=== PATIENT | female | born 1935 | race Caucasian/White ===

== ENCOUNTER 2022-04-29 12:11 | Outpatient (CLI) | payer MEDICARE, BC ==
[~2022-04-29] VITALS: Ht 160 cm; Wt 49.9 kg
[2022-04-29 12:54] LABS: EOSINOPHILS # (AUTO) 0.1 X10'3 (0-0.9); EOSINOPHILS % (AUTO) 1.2 % (0-6); LYMPHOCYTES # (AUTO) 0.9 X10'3 (1.1-4.8); LYMPHOCYTES % (AUTO) 13.9 % (21-51); MONOCYTES # (AUTO) 0.5 X10'3 (0-0.9); NEUTROPHILS # (AUTO) 4.7 X10'3 (1.8-7.7); RED BLOOD COUNT 4.64 X10'6 (4.20-5.60); RED CELL DISTRIBUTION WIDTH 14.5 % (11.5-14.5); WHITE BLOOD COUNT 6.2 X10'3 (4.5-11.0)
[2022-04-29 12:56] LABS: BASOPHILS % (AUTO) 0.6 % (0-1); HEMATOCRIT 41.8 % (35.0-45.0); HEMOGLOBIN 14.1 g/dl (12.0-16.0); MEAN CORPUSCULAR HEMOGLOBIN 30.4 PG (27.0-31.0); MEAN CORPUSCULAR HGB CONC 33.7 g/dL (33.0-36.5); MEAN CORPUSCULAR VOLUME 90.1 FL (78-98); MONOCYTES % (AUTO) 8.6 % (2-12); NEUTROPHILS % (AUTO) 75.7 % (42-75); PLATELET COUNT 89 X10'3 (140-440)
[2022-04-29 13:09] LABS: APTT 31 SECONDS (22-32)
[2022-04-29 13:11] LABS: ALANINE AMINOTRANSFERASE 26 U/L (12-78); ALBUMIN 3.5 G/DL (3.4-5.0); ALBUMIN/GLOBULIN RATIO 1.3 (1.1-1.5); ALKALINE PHOSPHATASE 72 IU/L (46-116); ANION GAP 4 (8-16); ASPARTATE AMINO TRANSFERASE 28 U/L (10-37); BILIRUBIN,TOTAL 0.9 MG/DL (0.1-1.0); BLOOD UREA NITROGEN 18 MG/DL (7-18); BUN/CREATININE RATIO 24.7 (6.6-38.0); CALCIUM 8.4 MG/DL (8.5-10.1); CHLORIDE 108 MMOL/L (99-107); CREATININE 0.73 MG/DL (0.40-0.90); GLUCOSE 104 MG/DL (70-104); POTASSIUM 4.1 MMOL/L (3.5-5.1); SODIUM 142 MMOL/L (135-145); TOTAL CARBON DIOXIDE 30.4 MMOL/L (24-32); TOTAL PROTEIN 6.2 G/DL (6.4-8.2); eGFR 75 ML/MIN
[2022-04-29] MEDS ORDERED: IODIXANOL 320 MG/ML INFUS..BTL 50ML IV ONE (13:22)
[2022-04-29] MEDS ORDERED: albuterol 2.5 MG/3 ML nebule NEB PRN (14:15)
[2022-05-16] MEDS ORDERED: APIX2.5T PO (13:56)
[2022-05-16] MEDS ORDERED: CLOP75TA15 PO (13:56)
[2022-05-16] MEDS ORDERED: ATOR10TA PO (13:56)
== END 2022-04-29 23:59 | disposition home or self-care (01) ==
LOC: 64 CT 12:11
PROVIDERS: ATTEND Internal Medicine Cardiovascular Disease
DX: J47.9 Bronchiectasis, uncomplicated (principal); I51.7 Cardiomegaly; I70.0 Atherosclerosis of aorta; J98.4 Other disorders of lung; R94.2 Abnormal results of pulmonary function studies; J98.11 Atelectasis; I35.0 Nonrheumatic aortic (valve) stenosis; I65.29 Occlusion and stenosis of unspecified carotid artery; R60.9 Edema, unspecified; Z98.82 Breast implant status
CPT/HCPCS: 36415; 71046; 71275; 74174; 80053; 85025; 85610; 85730; 94010; 94727; 94729; J3490; Q9967

== ENCOUNTER 2022-05-19 07:46 | Inpatient (IN) | payer MEDICARE, BC ==
[2022-05-16 14:11] LABS: EOSINOPHILS # (AUTO) 0.1 X10'3 (0-0.9); LYMPHOCYTES % (AUTO) 13.7 % (21-51); MEAN CORPUSCULAR HGB CONC 32.6 g/dL (33.0-36.5)
[2022-05-16 14:13] LABS: BASOPHILS % (AUTO) 0.3 % (0-1); EOSINOPHILS % (AUTO) 0.9 % (0-6); LYMPHOCYTES # (AUTO) 0.8 X10'3 (1.1-4.8); MEAN CORPUSCULAR HEMOGLOBIN 30.2 PG (27.0-31.0); MEAN CORPUSCULAR VOLUME 92.5 FL (78-98); MEAN PLATELET VOLUME 10.8 FL (7.4-10.4); MONOCYTES # (AUTO) 0.7 X10'3 (0-0.9); MONOCYTES % (AUTO) 11.5 % (2-12); NEUTROPHILS # (AUTO) 4.3 X10'3 (1.8-7.7); NEUTROPHILS % (AUTO) 73.6 % (42-75); PRE OP HEMATOCRIT 44.9 % (35.0-45.0); PRE OP HEMOGLOBIN 14.6 g/dL (12.0-16.0); RED BLOOD COUNT 4.85 X10'6 (4.20-5.60); RED CELL DISTRIBUTION WIDTH 14.7 % (11.5-14.5)
[2022-05-16 14:20] LABS: PRE OP PLATELET COUNT 86 X10'3 (140-440)
[2022-05-16 14:33] LABS: CLARITY,URINE SLIGHTLY CLOUDY (Clear); COLOR,URINE YELLOW (Yellow); GLUCOSE, URINE NEGATIVE (Neg); KETONES,URINE TRACE mg/dl (Neg); LEUKOCYTE ESTERASE ,URINE NEGATIVE (Neg); NITRITES, URINE NEGATIVE (Neg); OCCULT BLOOD,URINE SMALL (Neg); PH,URINE 6.5 (4.8-8.0); PROTEIN,URINE NEGATIVE (Neg)
[2022-05-16 14:41] LABS: UA COLLECTION TYPE CLN CATCH MIDSTREAM
[2022-05-16 14:42] LABS: HYALINE CASTS 0-3 /LPF (NEGATIVE); MUCUS STRANDS MANY /LPF (Neg); SQUAMOUS EPITHELIAL CELL,UR FEW /LPF (FEW)
[2022-05-16 14:44] LABS: BACTERIA,URINE 1+ /HPF (Neg); WBC,URINE 0-4 /HPF (0-4)
[2022-05-16 14:45] LABS: ALBUMIN 3.7 G/DL (3.4-5.0); ALBUMIN/GLOBULIN RATIO 1.2 (1.1-1.5); ALKALINE PHOSPHATASE 64 IU/L (46-116); BLOOD UREA NITROGEN 17 MG/DL (7-18); CALCIUM 8.8 MG/DL (8.5-10.1); CHLORIDE 107 MMOL/L (99-107); CREATININE 0.68 MG/DL (0.40-0.90); PRE OP ALT 20 U/L (30-65); PRE OP ANION GAP 8 (8-16); PRE OP AST 21 U/L (10-37); PRE OP BILIRUB, TOTAL 1.1 MG/DL (0.0-1.0); PRE OP GLUCOSE 89 MG/DL (70-104); PRE OP POTASSIUM 4.1 MMOL/L (3.4-5.1); PRE OP SODIUM 144 MMOL/L (135-145); TOTAL CARBON DIOXIDE 28.9 MMOL/L (24-32); TOTAL PROTEIN 6.7 G/DL (6.4-8.2); eGFR 82 ML/MIN
[2022-05-16 15:04] LABS: PRE OP INR 1.1 INR; PRE OP PROTIME 11.7 SECONDS (9.0-12.0)
[~2022-05-19] VITALS: Ht 160 cm; Wt 49.2 kg
[2022-05-19] VITALS (22 sets, daily range): BP systolic 98–143; BP diastolic 56–76
[2022-05-19] MEDS: nitroPRUSSIDE (NIPRIDE) (200MCG/ML) 100ML Drip IV SCH (05:30)
[~2022-05-19 07:46] MED LIST: APIX2.5T PO; ATOR10TA PO; CLOP75TA15 PO; aspirin 325mg tablet PO ONE; ceFAZolin inj. 2,000 MG in dextrose 5%-water 100 ML IV ONE; famotidine 20mg tablet PO ONE; ondansetron/PF 4mg/2ml inj IV PRN; phenylephrine inj 50 MG in normal saline 250ml IV solN IV SCH; protamine sulfate 10mg/ml inj. ONE; ringers solution, lacted 1,000 ML IV SCH; vancomycin/NS 1 GM in NS 250 ML IV ONE
[2022-05-19] MEDS ORDERED: proCHLORperazine 10 MG/2 ml inj IV PRN ×2 (10:10→13:35)
[2022-05-19] MEDS ORDERED: morphine 4 MG/ML inj SYRINge IV PRN (10:10)
[2022-05-19] MEDS ORDERED: ringers solution, lacted 1,000 ML IV SCH (10:10)
[2022-05-19] MEDS ORDERED: meperidine/PF 25mg/ml syringe IV PRN ×3 (10:10)
[2022-05-19] MEDS ORDERED: morphine 2 MG/ML inj. syringe IV PRN (10:10)
[2022-05-19] MEDS ORDERED: ondansetron/PF 4mg/2ml inj IV PRN ×2 (10:10→13:35)
[2022-05-19] MEDS ORDERED: iohexol 350MG/ML 100ml bottle IV ONE ×2 (11:15→11:16)
[2022-05-19] MEDS ORDERED: heparin 1,000 UNITS/NS 500ml 1,500 ML ONE (11:16)
[2022-05-19] MEDS ORDERED: sevoflurane 250ml liquid IH ONE (11:20)
[2022-05-19] MEDS ORDERED: neostigmine methylsulfate 1 MG/ML 10ml vial ONE (11:20)
[2022-05-19] MEDS ORDERED: midazolam 1 mg/ML 2ml injection ONE ×3 (11:29→14:33)
[2022-05-19] MEDS ORDERED: propofol inj 20 ML IV ONE (11:29)
[2022-05-19] MEDS ORDERED: LIDOcaine 2% (20mg/ml) 5ml vial ONE (11:29)
[2022-05-19] MEDS ORDERED: etomidate 2mg/ml inj. ONE (12:42)
[2022-05-19] MEDS ORDERED: phenylephrine 10mg/ml inj. ONE (12:42)
[2022-05-19] MEDS ORDERED: rocuronium 10mg/ml inj IV ONE (12:42)
[2022-05-19] MEDS ORDERED: ondansetron/PF 4mg/2ml inj ONE (12:43)
[2022-05-19] MEDS ORDERED: labetalol 20mg/4ml (5mg/ml) syringe IV PRN (13:35)
[2022-05-19] MEDS ORDERED: diphenhydrAMINE 25mg capsule PO PRN (13:35)
[2022-05-19] MEDS ORDERED: pantoprazole 40mg Tablet.DR PO PRN (13:35)
[2022-05-19] MEDS ORDERED: docusate sod 100mg capsule PO PRN (13:35)
[2022-05-19] MEDS ORDERED: acetaminophen 325mg tablet PO PRN (13:35)
[2022-05-19] MEDS ORDERED: ALPRAZolam 0.25mg tablet PO PRN (13:35)
--- NOTE | 2022-05-19 13:38 | NUR ---
Received from OR via SURGICAL BED , accompanied by Anesthesiologist MARY and report given by Anesthesiolgist. PATIENT ARRIVED WITH 10L MASK WITH BLOOD SPLATTERED ALL OVER INSIDE OF MASK. HOB SLIGHTLY ELEVATED PER MD HERNANDEZ. O2 SATURATIONS DECREASING BUT SUCTIONED AND JC RED BLOOD PRESENT IN SUCTION TUBING PATIENT SLOWLY BECOMING HYPERTENSIVE AND LABETALOL ADMINISTERED EMERGENTLY PER MARY ORDERS MEDICATION OVERRIDDEN FOR EMERGENCY. MD HERNANDEZ CALLED BACK TO ROOM AND WE BEGAN TO VENTILATE AND SUCTION BLOOD FROM PATIENT. MD HERNANDEZ ORDERED 2 UNITS OF FFP. 20G PIV IN LEFT PRESENT AND PIV IN RIGHT IS NOT FLOWING. NEW PIV EMERGENTLY PLACED IN LEFT AND RIGHT UES AND PLATLETS. MD ASSESSING FOR INTUBATION. O2 SATURATIONS SLOWLY INCREASING. OVER 3-5 MINUTES PATIENT DROPPING SATURATIONS AND WITH INCREASING WORK OF BREATHING.MD HENDERSON AT BEDSIDE AT THIS TIME. MD LARA AND MARY ATTEMPTING ANOTHER INTUBATION OF PATIENT. A TOTAL OF 6MG OF MIDAZOLAM OVERRIDDEN AND ADMINISTERED OVER FOLLOWING 2-4 MINUTES. TAKEN OUT EMERGENTLY. PATIENT AIRWAY EXTABLISHED AND TAKEN TO THE ICU. Addendum: 05/19/22 at 1523 by Narciso Willis RN, RN Amended: Links added.
[2022-05-19] MEDS ORDERED: racepinephrine 11.25mg/0.5ml nebule ONE ×2 (14:14→14:58)
[2022-05-19] MEDS ORDERED: labetalol 20mg/4ml (5mg/ml) syringe IV ONE (14:15)
[2022-05-19] MEDS ORDERED: DESMOPRESSIN IV ONE (14:15)
[2022-05-19] MEDS ORDERED: NORMAL SALINE IV ONE (14:15)
--- NOTE | 2022-05-19 14:17 | NUR ---
labetolol ordered by dr flanagan pt extremely unstable and it was needed immediately so override was used.
[2022-05-19] MEDS ORDERED: fentaNYL/PF 50MCG/1 ML 2ML syringe ONE (14:50)
[2022-05-19] MEDS ORDERED: midazolam 100mg in NS 100ml 100 ML IV PRN ×2 (14:55→15:32)
[2022-05-19] MEDS ORDERED: racepinephrine 11.25mg/0.5ml nebule NEB PRN (14:55)
[2022-05-19] MEDS ORDERED: midazolam 1 mg/ML 2ml injection IV ONE (14:55)
[2022-05-19] MEDS ORDERED: FENTANYL-0.9 % NACL/PF 100 ML IV PRN ×2 (14:55→15:31)
[2022-05-19] MEDS ORDERED: fentaNYL/PF 50MCG/1 ML 2ML syringe IV PRN (14:55)
--- NOTE | 2022-05-19 15:25 | NUR ---
[id number] VS VARIED FROM 80-90S SYSTOLICALLY TO 140-160S . INTUBATION, PERIPHERAL IVS X2 BEING PLACE. PATIENT THRASHING AND TURNING IN BED. PATIENT EVENTUALLY TAKEN TO THE ICU AFTER COMPLETION OF INTUBATION. PATIENT IN STABLE CONDITION. LIVESTOCK JUDGING COACH RN'S GAVE REPORT TO THE ICU. Addendum: 05/19/22 at 1532 by Narciso Montes - ROSSANA RN Amended: Links added.
[2022-05-19 15:26] LABS: ABG BASE EXCESS -2.9 mmol/L (-2.0-2.0); ABG OXYGEN SATURATION 99.5 % (94-97); ABG PCO2 (T) 38.7 mmHg (32.0-45.0); ABG PO2 (T) 367.8 mmHg (75.0-100.0); FCOHb 0.3 % (0.0-3.9); FMetHb 0.5 % (0.0-1.5); FO2Hb 98.7 % (94-97); PEEP 5 cm H2O; RESPIRATORY RATE 17 b/min; TIDAL VOLUME 450 mL; TOTAL HEMOGLOBIN 12.2 G/dl (12.0-16.0)
--- NOTE | 2022-05-19 15:28 | NUR ---
CARE TURNED OVER TO [employer] MANAGER WHO TOOK PATIENT TO THE ICU WHERE THEY HELPED SET PATIENT UP AND GAVE REPORT. Addendum: 05/19/22 at 1532 by Narciso iWllis RN, RN Amended: Links added.
[2022-05-19 15:38] LABS: BASOPHILS % (AUTO) 0.1 % (0-1); EOSINOPHILS % (AUTO) 0.3 % (0-6); HEMATOCRIT 34.2 % (35.0-45.0); HEMOGLOBIN 11.4 g/dl (12.0-16.0); LYMPHOCYTES # (AUTO) 0.7 X10'3 (1.1-4.8); LYMPHOCYTES % (AUTO) 5.8 % (21-51); MEAN CORPUSCULAR HGB CONC 33.2 g/dL (33.0-36.5); MEAN CORPUSCULAR VOLUME 90.3 FL (78-98); MEAN PLATELET VOLUME 9.9 FL (7.4-10.4); MONOCYTES # (AUTO) 0.4 X10'3 (0-0.9); MONOCYTES % (AUTO) 3.7 % (2-12); NEUTROPHILS # (AUTO) 10.4 X10'3 (1.8-7.7); NEUTROPHILS % (AUTO) 90.1 % (42-75); PLATELET COUNT 146 X10'3 (140-440); RED BLOOD COUNT 3.79 X10'6 (4.20-5.60); RED CELL DISTRIBUTION WIDTH 14.5 % (11.5-14.5); WHITE BLOOD COUNT 11.6 X10'3 (4.5-11.0)
[2022-05-19] MEDS: normal saline 1000ml 1,000 ML IV SCH ×2 (15:49→23:35)
[2022-05-19 15:51] LABS: ALANINE AMINOTRANSFERASE 36 U/L (12-78); ALBUMIN 2.9 G/DL (3.4-5.0); ALBUMIN/GLOBULIN RATIO 1.2 (1.1-1.5); ALKALINE PHOSPHATASE 53 IU/L (46-116); ANION GAP 9 (8-16); ASPARTATE AMINO TRANSFERASE 44 U/L (10-37); BILIRUBIN,TOTAL 1.8 MG/DL (0.1-1.0); BLOOD UREA NITROGEN 21 MG/DL (7-18); BUN/CREATININE RATIO 35.6 (6.6-38.0); CALCIUM 7.9 MG/DL (8.5-10.1); CHLORIDE 107 MMOL/L (99-107); CREATININE 0.59 MG/DL (0.40-0.90); GLUCOSE 171 MG/DL (70-104); POTASSIUM 3.8 MMOL/L (3.5-5.1); SODIUM 140 MMOL/L (135-145); TOTAL CARBON DIOXIDE 24.4 MMOL/L (24-32); TOTAL PROTEIN 5.3 G/DL (6.4-8.2); eGFR > 90 ML/MIN
[2022-05-19] MEDS: sod chloride 0.9% 10ml flush syringe IV SCH (15:58)
[2022-05-19] MEDS: ceFAZolin 1GM/D5W- ADD-VANTAGE 50 ML IV SCH ×2 (16:04→23:41)
[2022-05-19 16:07] LABS: APTT 27 SECONDS (22-32)
--- NOTE | 2022-05-19 18:16 | NUR ---
Problems reprioritized. Patient report given, questions answered & plan of care reviewed with Sherry TRACY.
--- NOTE | 2022-05-19 18:17 | NUR ---
Patient in room CICU 2008. I have received report from Yair TRACY and had the opportunity to ask questions and assume patient care. Dr. Pisano at bedside. Per MD: plan is to wean to extubate in the AM with cork slabs sawyer, OG to be placed only if unable to extubate and need to give PO Plavix tomorrow. Contact cork slabs sawyer or blackjack supervisor Asaf Lee for emergent issues.
[2022-05-19] MEDS: vancomycin/NS 1 GM ADD-VANTAGE 250 ML IV SCH (20:12)
[2022-05-19] MEDS ORDERED: neomy sulf/bacitrac zn/polymixin b oint 14.2 gm tube TP SCH (21:00)
[2022-05-20] VITALS (30 sets, daily range): BP systolic 93–152; BP diastolic 41–65
[2022-05-20] MEDS: sod chloride 0.9% 10ml flush syringe IV SCH ×4 (00:19→23:45)
[2022-05-20 03:23] LABS: ABG BASE EXCESS -0.8 mmol/L (-2.0-2.0); ABG HCO3 20.7 mmol/L (22.0-26.0); ABG OXYGEN SATURATION 98.5 % (94-97); ABG PCO2 (T) 25.3 mmHg (32.0-45.0); ABG PO2 (T) 131.2 mmHg (75.0-100.0); FCOHb 0.3 % (0.0-3.9); FMetHb 0.3 % (0.0-1.5); FO2Hb 97.9 % (94-97); PEEP 5 cm H2O; RESPIRATORY RATE 16 b/min; TIDAL VOLUME 450 mL; TOTAL HEMOGLOBIN 11.6 G/dl (12.0-16.0)
[2022-05-20 03:29] LABS: BASOPHILS % (AUTO) 0.1 % (0-1); EOSINOPHILS % (AUTO) 0 % (0-6); HEMATOCRIT 31.4 % (35.0-45.0); HEMOGLOBIN 10.7 g/dl (12.0-16.0); LYMPHOCYTES # (AUTO) 0.2 X10'3 (1.1-4.8); MEAN CORPUSCULAR HEMOGLOBIN 30.3 PG (27.0-31.0); MEAN CORPUSCULAR HGB CONC 33.9 g/dL (33.0-36.5); MEAN CORPUSCULAR VOLUME 89.4 FL (78-98); MEAN PLATELET VOLUME 10.1 FL (7.4-10.4); MONOCYTES # (AUTO) 0.3 X10'3 (0-0.9); MONOCYTES % (AUTO) 4.3 % (2-12); NEUTROPHILS # (AUTO) 7.1 X10'3 (1.8-7.7); NEUTROPHILS % (AUTO) 92.6 % (42-75); PLATELET COUNT 90 X10'3 (140-440); RED BLOOD COUNT 3.51 X10'6 (4.20-5.60); RED CELL DISTRIBUTION WIDTH 14.2 % (11.5-14.5); WHITE BLOOD COUNT 7.7 X10'3 (4.5-11.0)
[2022-05-20 03:49] LABS: ALANINE AMINOTRANSFERASE 29 U/L (12-78); ALBUMIN 2.7 G/DL (3.4-5.0); ALBUMIN/GLOBULIN RATIO 1.1 (1.1-1.5); ALKALINE PHOSPHATASE 47 IU/L (46-116); ANION GAP 12 (8-16); ASPARTATE AMINO TRANSFERASE 34 U/L (10-37); BILIRUBIN,TOTAL 1.2 MG/DL (0.1-1.0); BLOOD UREA NITROGEN 22 MG/DL (7-18); BUN/CREATININE RATIO 36.1 (6.6-38.0); CALCIUM 7.5 MG/DL (8.5-10.1); CHLORIDE 107 MMOL/L (99-107); CREATININE 0.61 MG/DL (0.40-0.90); GLUCOSE 151 MG/DL (70-104); MAGNESIUM 1.7 MG/DL (1.5-2.4); POTASSIUM 3.6 MMOL/L (3.5-5.1); SODIUM 140 MMOL/L (135-145); TOTAL PROTEIN 5.1 G/DL (6.4-8.2); eGFR > 90 ML/MIN
[2022-05-20 04:10] LABS: PLATELET ESTIMATE DECREASED
[2022-05-20 04:13] LABS: BURR CELLS 1+; LARGE PLATELETS FEW; POIKILOCYTOSIS 2+
[2022-05-20] MEDS ORDERED: ringers solution, lactated 500ml IV solution IV ONE (04:20)
--- NOTE | 2022-05-20 04:20 | NUR ---
Dr. Pereira notified of patient's decreased urine output and hypotension. Orders received.
--- NOTE | 2022-05-20 06:19 | NUR ---
Problems reprioritized. Patient report given, questions answered & plan of care reviewed with Ami TRACY.
[2022-05-20] MEDS: ceFAZolin 1GM/D5W- ADD-VANTAGE 50 ML IV SCH (07:07)
[2022-05-20] MEDS: nitroPRUSSIDE (NIPRIDE) (200MCG/ML) 100ML Drip IV SCH (08:14)
[2022-05-20] MEDS: vancomycin/NS 1 GM ADD-VANTAGE 250 ML IV SCH (08:23)
[2022-05-20] MEDS: normal saline 1000ml 1,000 ML IV SCH ×2 (09:35→14:06)
--- NOTE | 2022-05-20 09:38 | NUR ---
Called Dr. Goss and told him the patient's current status and weaning parameters. Patient is good for extubation per
--- NOTE | 2022-05-20 09:42 | NUR ---
Called Dr. Pisano to verify that we are okay to extubate the patient. He stated that if the jewelry sorter is prepared for the worst case scenario then it is fine with him. He did state to call Dr. Asaf Lee to verify with him. Dr. Lee was called and he stated that as long as Dr. Goss says it's okay then he is fine with it. Dr. Goss informed of these conversations and Dr. Goss stated to continue with extubation.
--- NOTE | 2022-05-20 09:55 | NUR ---
Patient extubated with x2 RT, x1 RN and Dr. Goss bedside. Patient tolerated well. Patient placed on 3L NC.
--- NOTE | 2022-05-20 10:28 | NUR ---
Rounds note: Patient to be kept in CICU over night to evaluate how she does. Also gave orders to D/C arterial line.
--- NOTE | 2022-05-20 11:04 | NUR ---
Pt briefly re-intubated s/p TAVR currently extubated on 3L NC pending CAD INTERN BSS prior to resuming heart healthy diet per RN at rounds. 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 Will monitor for CAD INTERN recs and nutrition intervention needs post-op. Addendum: 05/20/22 at [address] Amended: Links added.
[2022-05-20] MEDS: clopidogrel 75mg tablet PO SCH (12:09)
[2022-05-20] MEDS: atorvastatin 10mg tablet PO SCH (12:09)
[2022-05-20] MEDS ORDERED: REMIFENTANIL (Ultiva) 1 MG VIAL IV ONE (14:45)
--- NOTE | 2022-05-20 16:30 | NUR ---
Spoke with Dr. Goss about patient urine output decrease. He stated that he did not want to give more fluid and did not want to diurese at this time.
[2022-05-20] MEDS: mineral oil/petrolatum ophthal oint EACHEYE SCH (20:00)
[2022-05-21] VITALS (18 sets, daily range): BP systolic 146–171; BP diastolic 65–102
[2022-05-21] MEDS: mineral oil/petrolatum ophthal oint EACHEYE SCH ×2 (00:07→08:00)
[2022-05-21] MEDS: normal saline 1000ml 1,000 ML IV SCH ×3 (00:08→21:20)
[2022-05-21] MEDS: sod chloride 0.9% 10ml flush syringe IV SCH (08:00)
[2022-05-21] MEDS: clopidogrel 75mg tablet PO SCH (08:21)
[2022-05-21] MEDS: atorvastatin 10mg tablet PO SCH (08:21)
[2022-05-21 08:59] LABS: EOSINOPHILS % (AUTO) 0.2 % (0-6); HEMOGLOBIN 12.1 g/dl (12.0-16.0); LYMPHOCYTES # (AUTO) 0.4 X10'3 (1.1-4.8); MEAN CORPUSCULAR HEMOGLOBIN 30.1 PG (27.0-31.0); MONOCYTES # (AUTO) 0.6 X10'3 (0-0.9); RED BLOOD COUNT 4.02 X10'6 (4.20-5.60)
[2022-05-21 09:01] LABS: BASOPHILS % (AUTO) 0.3 % (0-1); HEMATOCRIT 36.7 % (35.0-45.0); LYMPHOCYTES % (AUTO) 5.8 % (21-51); MEAN CORPUSCULAR HGB CONC 32.9 g/dL (33.0-36.5); MEAN CORPUSCULAR VOLUME 91.4 FL (78-98); NEUTROPHILS % (AUTO) 84.7 % (42-75); PLATELET COUNT 104 X10'3 (140-440); RED CELL DISTRIBUTION WIDTH 14.8 % (11.5-14.5); WHITE BLOOD COUNT 7.1 X10'3 (4.5-11.0)
[2022-05-21 09:12] LABS: ALANINE AMINOTRANSFERASE 33 U/L (12-78); ALBUMIN 3.1 G/DL (3.4-5.0); ALBUMIN/GLOBULIN RATIO 1.1 (1.1-1.5); ALKALINE PHOSPHATASE 57 IU/L (46-116); ANION GAP 9 (8-16); ASPARTATE AMINO TRANSFERASE 42 U/L (10-37); BILIRUBIN,TOTAL 1.3 MG/DL (0.1-1.0); BLOOD UREA NITROGEN 25 MG/DL (7-18); CALCIUM 7.4 MG/DL (8.5-10.1); CHLORIDE 107 MMOL/L (99-107); CREATININE 0.51 MG/DL (0.40-0.90); GLUCOSE 157 MG/DL (70-104); POTASSIUM 3.6 MMOL/L (3.5-5.1); SODIUM 139 MMOL/L (135-145); TOTAL CARBON DIOXIDE 22.7 MMOL/L (24-32); TOTAL PROTEIN 5.9 G/DL (6.4-8.2); eGFR > 90 ML/MIN
[2022-05-21] MEDS ORDERED: guaiFENesin/DM/phenylephrine syrup 120ml bottle PO PRN (12:10)
--- NOTE | 2022-05-21 16:20 | NUR ---
Pt transferred to pcu room 3015 B via wheelchair monitored by telemetry. Report called to receiving nurse ROSSANA Washington.
[2022-05-21] MEDS: pantoprazole 40mg Tablet.DR PO SCH (17:33)
[2022-05-21] MEDS: apixaban 2.5mg tablet PO SCH (20:31)
[2022-05-21] MEDS ORDERED: morphine 2 MG/ML inj. syringe IV PRN (23:00)
[2022-05-22 02:00] VITALS: BP 160/65
[2022-05-22 06:00] VITALS: BP 164/95
--- NOTE | 2022-05-22 06:45 | NUR ---
Problems reprioritized. Patient report given, questions answered & plan of care reviewed with Ynes TRACY.
[2022-05-22] MEDS: atorvastatin 10mg tablet PO SCH (08:22)
[2022-05-22] MEDS: clopidogrel 75mg tablet PO SCH (08:22)
[2022-05-22] MEDS: apixaban 2.5mg tablet PO SCH ×2 (08:22→19:42)
[2022-05-22] MEDS: pantoprazole 40mg Tablet.DR PO SCH (08:22)
--- NOTE | 2022-05-22 09:41 | NUR ---
Initial: Pt admitted w/ aortic stenosis, s/p TAVR this admit per EMR. Currently on Puree/NTL diet per [employer] recs w/ avg intake 55% x 4 meals likely meeting minimum est nutrient needs at this time. Pt documented to be A&O x 1 and confused, receiving minimal assistance w/ meals. Pt also reported to be complaining of sore throat. LBM 7/2. No nutrition intervention implemented at this time, will continue to monitor. Recs: 1. Continue Puree/NTL diet per [employer] recs; assist w/ meals 2. Bowel care per rx 3. Weekly wts Addendum: 05/22/22 at [address] Amended: Links added.
[2022-05-22 10:51] LABS: BASOPHILS % (AUTO) 0.3 % (0-1); EOSINOPHILS % (AUTO) 0.5 % (0-6); HEMATOCRIT 34.9 % (35.0-45.0); HEMOGLOBIN 11.7 g/dl (12.0-16.0); LYMPHOCYTES # (AUTO) 0.4 X10'3 (1.1-4.8); LYMPHOCYTES % (AUTO) 6.4 % (21-51); MEAN CORPUSCULAR HEMOGLOBIN 30.2 PG (27.0-31.0); MEAN CORPUSCULAR HGB CONC 33.5 g/dL (33.0-36.5); MEAN PLATELET VOLUME 10.4 FL (7.4-10.4); MONOCYTES # (AUTO) 0.8 X10'3 (0-0.9); MONOCYTES % (AUTO) 11.8 % (2-12); NEUTROPHILS # (AUTO) 5.2 X10'3 (1.8-7.7); PLATELET COUNT 74 X10'3 (140-440); RED BLOOD COUNT 3.88 X10'6 (4.20-5.60); RED CELL DISTRIBUTION WIDTH 14.4 % (11.5-14.5); WHITE BLOOD COUNT 6.4 X10'3 (4.5-11.0)
[2022-05-22 10:58] LABS: ALANINE AMINOTRANSFERASE 39 U/L (12-78); ALBUMIN 3.2 G/DL (3.4-5.0); ALBUMIN/GLOBULIN RATIO 1.2 (1.1-1.5); ALKALINE PHOSPHATASE 58 IU/L (46-116); ANION GAP 7 (8-16); ASPARTATE AMINO TRANSFERASE 48 U/L (10-37); BILIRUBIN,TOTAL 2.1 MG/DL (0.1-1.0); BLOOD UREA NITROGEN 9 MG/DL (7-18); BUN/CREATININE RATIO 21.4 (6.6-38.0); CALCIUM 7.7 MG/DL (8.5-10.1); CHLORIDE 106 MMOL/L (99-107); CREATININE 0.42 MG/DL (0.40-0.90); GLUCOSE 96 MG/DL (70-104); SODIUM 140 MMOL/L (135-145); TOTAL CARBON DIOXIDE 26.7 MMOL/L (24-32); TOTAL PROTEIN 5.9 G/DL (6.4-8.2); eGFR > 90 ML/MIN
[2022-05-22 11:00] VITALS: BP 160/75
[2022-05-22 11:00] LABS: POTASSIUM 2.7 MMOL/L (3.5-5.1)
[2022-05-22] MEDS ORDERED: magnesium Cl slow-release 64mg tablet PO PRN (11:05)
[2022-05-22] MEDS ORDERED: magnesium 2GM in 50ml NS 50 ML IV PRN (11:05)
[2022-05-22] MEDS ORDERED: POTASSIUM BICARB 20meq eff tab 20 MEQ TABLET.EFF PO PRN (11:05)
[2022-05-22] MEDS ORDERED: magnesium 4gm in 100ml NS 100 ML IV PRN (11:05)
[2022-05-22] MEDS: potassium CL 10mEq/100ml bag 100 ML IV PRN ×2 (11:39→12:46)
[2022-05-22] MEDS: POTASSIUM BICARB 20meq eff tab 20 MEQ TABLET.EFF PO PRN ×2 (14:55→19:44)
[2022-05-22 15:00] VITALS: BP 180/90
[2022-05-22] MEDS: hydrALAZINE 20mg/ml inj. IV PRN (16:20)
[2022-05-22 18:00] VITALS: BP 140/80
[2022-05-22] MEDS: K and/or MAG REPLACEMENT MC SCH (19:42)
[2022-05-22] MEDS: Chloraseptic (Phenol) Spray 177ml MM PRN (19:42)
[2022-05-22] MEDS: normal saline 1000ml 1,000 ML IV SCH (20:39)
[2022-05-22 22:00] VITALS: BP 149/72
[2022-05-23 02:00] VITALS: BP 153/77
[2022-05-23] MEDS: normal saline 1000ml 1,000 ML IV SCH (03:21)
[2022-05-23 06:00] VITALS: BP 123/63
[2022-05-23 06:44] LABS: EOSINOPHILS # (AUTO) 0.1 X10'3 (0-0.9); LYMPHOCYTES # (AUTO) 0.4 X10'3 (1.1-4.8); MONOCYTES # (AUTO) 0.9 X10'3 (0-0.9); WHITE BLOOD COUNT 7.3 X10'3 (4.5-11.0)
[2022-05-23 06:46] LABS: BASOPHILS % (AUTO) 0.2 % (0-1); EOSINOPHILS % (AUTO) 0.7 % (0-6); HEMATOCRIT 35.2 % (35.0-45.0); LYMPHOCYTES % (AUTO) 5.1 % (21-51); MEAN CORPUSCULAR HEMOGLOBIN 30.7 PG (27.0-31.0); MEAN CORPUSCULAR VOLUME 90.1 FL (78-98); MEAN PLATELET VOLUME 11.1 FL (7.4-10.4); MONOCYTES % (AUTO) 12.3 % (2-12); NEUTROPHILS # (AUTO) 5.9 X10'3 (1.8-7.7); NEUTROPHILS % (AUTO) 81.7 % (42-75); PLATELET COUNT 66 X10'3 (140-440); RED BLOOD COUNT 3.91 X10'6 (4.20-5.60); RED CELL DISTRIBUTION WIDTH 14.3 % (11.5-14.5)
[2022-05-23 07:03] LABS: ALANINE AMINOTRANSFERASE 35 U/L (12-78); ALBUMIN 3.1 G/DL (3.4-5.0); ALBUMIN/GLOBULIN RATIO 1.2 (1.1-1.5); ALKALINE PHOSPHATASE 57 IU/L (46-116); ANION GAP 7 (8-16); ASPARTATE AMINO TRANSFERASE 41 U/L (10-37); BILIRUBIN,TOTAL 2.4 MG/DL (0.1-1.0); BLOOD UREA NITROGEN 9 MG/DL (7-18); BUN/CREATININE RATIO 18.4 (6.6-38.0); CALCIUM 7.8 MG/DL (8.5-10.1); CHLORIDE 108 MMOL/L (99-107); CREATININE 0.49 MG/DL (0.40-0.90); GLUCOSE 95 MG/DL (70-104); POTASSIUM 3.4 MMOL/L (3.5-5.1); SODIUM 142 MMOL/L (135-145); TOTAL CARBON DIOXIDE 27.4 MMOL/L (24-32); TOTAL PROTEIN 5.6 G/DL (6.4-8.2); eGFR > 90 ML/MIN
--- NOTE | 2022-05-23 07:25 | NUR ---
PAGER ID: [phone] MESSAGE: Room: 2149W: Princess Villa: This pt's platelets this morning are 66. Would you like me to hold their plavix or eliquis? ROSSANA Perez [phone]
[2022-05-23] MEDS: POTASSIUM BICARB 20meq eff tab 20 MEQ TABLET.EFF PO PRN ×2 (08:33→12:44)
[2022-05-23] MEDS: pantoprazole 40mg Tablet.DR PO SCH (08:33)
[2022-05-23] MEDS: apixaban 2.5mg tablet PO SCH (08:33)
[2022-05-23] MEDS: clopidogrel 75mg tablet PO SCH (08:33)
[2022-05-23] MEDS: atorvastatin 10mg tablet PO SCH (08:33)
[2022-05-23] MEDS: K and/or MAG REPLACEMENT MC SCH ×2 (08:34→19:12)
--- NOTE | 2022-05-23 08:46 | NUR ---
PAGER ID: [phone] MESSAGE: Room: 3015B: Allen: LAURIE: This pt appears to be bleeding each time they clean their perineum post void, but the pt states that it is their hemorrhoid that is causing it. Hemoglobin is up to 12 from 11.7. ROSSANA Perez [id number]
[2022-05-23 11:00] VITALS: BP 166/90
[2022-05-23] MEDS: Chloraseptic (Phenol) Spray 177ml MM PRN ×3 (11:18→21:13)
[2022-05-23] MEDS: hydrALAZINE 20mg/ml inj. IV PRN (11:20)
[2022-05-23 15:00] VITALS: BP 104/62
[2022-05-23 18:00] VITALS: BP 146/66
--- NOTE | 2022-05-23 19:17 | NUR ---
At shift change RN went into patient room to introduce self, and patient daughter Maru in room. Informed RN that patient has had swallowing issues that have worsened over the last year. Patient had tonsil cancer and radiation and was told tissues in her throat were very friable after. Patient coughs and seems to choke regularly with meals even before this hospitalization. Family hoping for follow up with ENT here in [place] after discharge. Information will be endorsed to day shift RN to pass on to doctors. This RN did not note cancer and radiation of throat in previous H&P or other notes. ST scheduled to see patient tomorrow, will make sure they are made aware of history as well.
[2022-05-23 22:00] VITALS: BP 147/76
[2022-05-24] MEDS: normal saline 1000ml 1,000 ML IV SCH ×2 (01:30→15:11)
[2022-05-24 02:00] VITALS: BP 122/66
[2022-05-24 06:00] VITALS: BP 146/69
--- NOTE | 2022-05-24 06:30 | NUR ---
Patient in room PCU 3015. I have received report from ROSSANA Benitez and had the opportunity to ask questions and assume patient care.
[2022-05-24 07:49] LABS: BASOPHILS % (AUTO) 0.3 % (0-1); EOSINOPHILS # (AUTO) 0.1 X10'3 (0-0.9); HEMOGLOBIN 11.2 g/dl (12.0-16.0); LYMPHOCYTES # (AUTO) 0.6 X10'3 (1.1-4.8); LYMPHOCYTES % (AUTO) 7.7 % (21-51); MONOCYTES # (AUTO) 0.9 X10'3 (0-0.9)
[2022-05-24 07:51] LABS: EOSINOPHILS % (AUTO) 1.4 % (0-6); MEAN CORPUSCULAR HEMOGLOBIN 30.5 PG (27.0-31.0); MEAN CORPUSCULAR VOLUME 89.7 FL (78-98); MEAN PLATELET VOLUME 11.6 FL (7.4-10.4); MONOCYTES % (AUTO) 12.3 % (2-12); NEUTROPHILS # (AUTO) 5.8 X10'3 (1.8-7.7); NEUTROPHILS % (AUTO) 78.3 % (42-75); PLATELET COUNT 70 X10'3 (140-440); RED BLOOD COUNT 3.68 X10'6 (4.20-5.60); RED CELL DISTRIBUTION WIDTH 14.3 % (11.5-14.5); WHITE BLOOD COUNT 7.4 X10'3 (4.5-11.0)
[2022-05-24 08:00] LABS: ALANINE AMINOTRANSFERASE 31 U/L (12-78); ALBUMIN/GLOBULIN RATIO 1.3 (1.1-1.5); ALKALINE PHOSPHATASE 64 IU/L (46-116); ANION GAP 8 (8-16); ASPARTATE AMINO TRANSFERASE 41 U/L (10-37); BILIRUBIN,TOTAL 2.6 MG/DL (0.1-1.0); BLOOD UREA NITROGEN 15 MG/DL (7-18); BUN/CREATININE RATIO 36.6 (6.6-38.0); CALCIUM 7.4 MG/DL (8.5-10.1); CHLORIDE 108 MMOL/L (99-107); CREATININE 0.41 MG/DL (0.40-0.90); GLUCOSE 88 MG/DL (70-104); MAGNESIUM 1.9 MG/DL (1.5-2.4); POTASSIUM 3.5 MMOL/L (3.5-5.1); SODIUM 141 MMOL/L (135-145); TOTAL CARBON DIOXIDE 25.4 MMOL/L (24-32); TOTAL PROTEIN 5.4 G/DL (6.4-8.2); eGFR > 90 ML/MIN
[2022-05-24] MEDS: K and/or MAG REPLACEMENT MC SCH (08:00)
[2022-05-24] MEDS: Chloraseptic (Phenol) Spray 177ml MM PRN (08:41)
[2022-05-24] MEDS: atorvastatin 10mg tablet PO SCH (08:42)
[2022-05-24] MEDS: clopidogrel 75mg tablet PO SCH (08:42)
[2022-05-24] MEDS: pantoprazole 40mg Tablet.DR PO SCH (08:43)
[2022-05-24] MEDS ORDERED: PANT40TA54 PO (09:52)
[2022-05-24] MEDS ORDERED: POTA20TA34 PO (09:52)
[2022-05-24 11:00] VITALS: BP 158/79
--- NOTE | 2022-05-24 11:34 | NUR ---
PAGER ID: [phone] MESSAGE: Room: 5037N: Princess Villa: Is this pt still discharging today? ROSSANA Perez [phone]
--- NOTE | 2022-05-24 16:50 | NUR ---
Patient discharged to home from the hospital. Discharge paperwork reviewed and signed with the assistance of this travel writer. PIV and telemetry removed and belongings returned at the time of shift. Discharge paperwork sent to the pt's preferred pharmacy.
--- NOTE | 2022-05-30 09:55 | NUR ---
Case Management DC follow up: Left VM with name ,telephone number, and reason for call
== END 2022-05-24 16:43 | disposition home or self-care (01) | DRG 266 ==
LOC: PAS IN 07:46 → CICU 2S 15:19 → PCU 3S 05-21 16:02
PROVIDERS: ADMIT Internal Medicine Cardiovascular Disease; ATTEND Internal Medicine Cardiovascular Disease
PROC: B41D1ZZ Fluoroscopy of Aorta and Bilateral Lower Extremity Arteries using Low Osmolar Contrast (ICD-10-PCS; 2022-05-19)
PROC: 30233R1 Transfusion of Nonautologous Platelets into Peripheral Vein, Percutaneous Approach (ICD-10-PCS; 2022-05-19)
PROC: 5A1935Z Respiratory Ventilation, Less than 24 Consecutive Hours (ICD-10-PCS; 2022-05-19)
PROC: 0BH17EZ Insertion of Endotracheal Airway into Trachea, Via Natural or Artificial Opening (ICD-10-PCS; 2022-05-19)
PROC: X2RF332 Replacement of Aortic Valve using Zooplastic Tissue, Rapid Deployment Technique, Percutaneous Approach, New Technology Group 2 (ICD-10-PCS; principal; 2022-05-19 11:20)
DX: I35.0 Nonrheumatic aortic (valve) stenosis (principal); Z00.6 Encounter for examination for normal comparison and control in clinical research program; J95.821 Acute postprocedural respiratory failure; I48.20 Chronic atrial fibrillation, unspecified; E78.00 Pure hypercholesterolemia, unspecified; D69.6 Thrombocytopenia, unspecified; R58 Hemorrhage, not elsewhere classified; R49.0 Dysphonia; E87.6 Hypokalemia; R31.9 Hematuria, unspecified; J04.0 Acute laryngitis; R34 Anuria and oliguria; I25.10 Atherosclerotic heart disease of native coronary artery without angina pectoris; R73.9 Hyperglycemia, unspecified; Z79.01 Long term (current) use of anticoagulants; Z79.02 Long term (current) use of antithrombotics/antiplatelets; Z87.891 Personal history of nicotine dependence; Z95.5 Presence of coronary angioplasty implant and graft; Z98.82 Breast implant status; Z85.818 Personal history of malignant neoplasm of other sites of lip, oral cavity, and pharynx; Z79.899 Other long term (current) drug therapy
CPT/HCPCS: 33361; 36415; 36430; 36600; 71045; 80053; 81001; 82803; 82948; 83735; 83880; 85008; 85018; 85025; 85347; 85384; 85610; 85730; 86022; 86885; 86900; 86901; 86920; 87070; 87081; 92508; 92616; 93005; 93308; 93971; 94002; 94003; 94640; 94760; 97110; 97116; 97161; 97530; A4314; A4615; A4618; A6258; A6449; A7015; C1756; C1758; C1760; C1769; C1894; G0378; J0360; J0690; J1644; J2250; J2270; J2370; J2405; J2597; J2704; J2710; J2720; J3010; J3370; J3480; J3490; J7030; J7040; J7050; J7060; J7120; P9035; Q9967

== ENCOUNTER 2024-04-14 18:03 | Emergency (ER) | payer MEDICARE, BC ==
[~2024-04-14] VITALS: Ht 160 cm; Wt 49.9 kg
[~2024-04-14 18:03] MED LIST changes: -APIX2.5T PO; +PANT40TA54 PO; +POTA20TA34 PO; -aspirin 325mg tablet PO ONE; -ceFAZolin inj. 2,000 MG in dextrose 5%-water 100 ML IV ONE; -famotidine 20mg tablet PO ONE; -ondansetron/PF 4mg/2ml inj IV PRN; -phenylephrine inj 50 MG in normal saline 250ml IV solN IV SCH; -protamine sulfate 10mg/ml inj. ONE; -ringers solution, lacted 1,000 ML IV SCH; -vancomycin/NS 1 GM in NS 250 ML IV ONE
[2024-04-14 18:46] LABS: APTT 36 SECONDS (22-32); INR 3.1 INR; PROTHROMBIN TIME 30.7 SECONDS (9.0-12.0)
[2024-04-14 19:33] LABS: BASOPHILS % (AUTO) 0.4 % (0-1); EOSINOPHILS % (AUTO) 0.7 % (0-6); HEMOGLOBIN 13.3 g/dl (12.0-16.0); MONOCYTES # (AUTO) 0.6 X10'3 (0-0.9); NEUTROPHILS # (AUTO) 4.4 X10'3 (1.8-7.7); WHITE BLOOD COUNT 6.1 X10'3 (4.5-11.0)
[2024-04-14 19:35] LABS: HEMATOCRIT 39.4 % (35.0-45.0); LYMPHOCYTES % (AUTO) 16.5 % (21-51); MEAN CORPUSCULAR HGB CONC 33.8 g/dL (33.0-36.5); MEAN CORPUSCULAR VOLUME 91.6 FL (78-98); MEAN PLATELET VOLUME 11.7 FL (7.4-10.4); MONOCYTES % (AUTO) 10.4 % (2-12); PLATELET COUNT 119 X10'3 (140-440); RED CELL DISTRIBUTION WIDTH 15.2 % (11.5-14.5)
[2024-04-14] MEDS: TETanus/Pertussis (Acell)/Diphther VAC/PF (Tdap-Adult) 0.5ml syringe IMVAC ONE (20:18)
[2024-04-14] MEDS ORDERED: ketorolac trometh. 30mg/ml inj. IV ONE (20:25)
[2024-04-14 20:27] LABS: ACANTHOCYTES 1+; BURR CELLS 1+; ELLIPTOCYTES FEW; LARGE PLATELETS FEW; PLATELET ESTIMATE DECREASED
[2024-04-14 20:29] LABS: ALBUMIN 3.6 G/DL (3.4-5.0); ANION GAP 8 (8-16); BLOOD UREA NITROGEN 24 MG/DL (7-18); BUN/CREATININE RATIO 37.5 (10.0-20.0); CALCIUM 9.5 MG/DL (8.5-10.1); CHLORIDE 105 MMOL/L (99-107); CREATININE 0.64 MG/DL (0.40-0.90); GLUCOSE 98 MG/DL (70-104); POTASSIUM 4.2 MMOL/L (3.5-5.1); SODIUM 142 MMOL/L (135-145); TOTAL CARBON DIOXIDE 29.1 MMOL/L (24-32); eCRCL 47 ML/MIN; eGFR 87 ML/MIN
[2024-04-14] MEDS: ketorolac tromethamine 15mg/ml inj. IV ONE (20:54)
[2024-04-14 21:28] LABS: BILIRUBIN,URINE NEGATIVE (Neg); CLARITY,URINE CLEAR (Clear); COLOR,URINE YELLOW (Yellow); GLUCOSE, URINE NEGATIVE (Neg); KETONES,URINE NEGATIVE (Neg); LEUKOCYTE ESTERASE ,URINE NEGATIVE (Neg); NITRITES, URINE NEGATIVE (Neg); OCCULT BLOOD,URINE SMALL (Neg); PROTEIN,URINE NEGATIVE (Neg)
[2024-04-14 21:29] LABS: UA COLLECTION TYPE URINAL
[2024-04-14 21:36] LABS: MUCUS STRANDS MANY /LPF (Neg); SQUAMOUS EPITHELIAL CELL,UR MODERATE /LPF (FEW)
[2024-04-14 21:37] LABS: BACTERIA,URINE 1+ /HPF (Neg); WBC,URINE 0-4 /HPF (0-4)
[2024-04-14 21:39] LABS: AMORPHOUS PHOSPHATES 2+; HYALINE CASTS 0-3 /LPF (NEGATIVE)
[2024-04-14 22:49] VITALS: BP 138/71; PULSE 57; RESP 16; TEMP 98; O2SAT 97
== END 2024-04-14 22:59 | disposition home or self-care (01) ==
LOC: ER 18:04
DX: S61.512A Laceration without foreign body of left wrist, initial encounter (principal); I48.91 Unspecified atrial fibrillation; W18.30XA Fall on same level, unspecified, initial encounter; Y93.89 Activity, other specified; Y92.89 Other specified places as the place of occurrence of the external cause; Y99.8 Other external cause status
CPT/HCPCS: 36415; 70450; 70486; 71045; 72125; 73110; 80048; 81001; 84484; 85008; 85025; 85610; 85730; 90471; 90715; 93005; 96374; 99285; J1885; A6258; A6410